=== PATIENT | male | born 1960 | race Caucasian/White ===

== ENCOUNTER 2018-09-12 07:10 | Day surgery (SDC) | payer BC ==
[~2018-09-12] VITALS: Ht 172.7 cm; Wt 88.5 kg
[~2018-09-12 07:10] MED LIST: ASPIR 8181 MG PO; FISH OIL 1,0001 EAC2 NG; GLUCOPHAGE500 MG PO; HYDROCHLOROTH12.5 MG PO; LIPITOR40 MG PO; LISINOPRIL40 MG PO; MULTI VITAMIN1 EACH PO; QC CALCIUM 6001 EACH PO; VITAMIN C100 MG PO; VITAMIN E400 UNI1 PO
--- NOTE | 2018-09-12 08:59 | NUR ---
09/12/18 0859 Beatriz Fabian 0852 PATIENT ARRIVES TO PACU AWAKE, BUT DROWSY, TALKING WITH STAFF. WHEN NOT STIMULATED PATIENT FALLS ASLEEP. RESP EVEN AND UNLABORED, OCCASIONAL SNORING, DESATS WHEN SLEEPING TO 85% ON ROOM AIR, NC AT 2 LITERS, SATS >95%.
--- NOTE | 2018-09-12 16:10 | NUR ---
PT LAYING IN RM, ALERT AND ORIENTED. HE WAS KIND IN HIS CHOICE OF WORDS FOR THE "PREP". HAD GOOD VISIT, EXTENDED A BLESSING. WILL FOLLOW NEEDED
--- NOTE | 2018-09-12 17:10 | OR ---
[facility] [address], [place] [address] Signed DATE OF OPERATION: 09/12/2018 SURGEON: Cristal Jean MD PREOPERATIVE DIAGNOSIS: Hyperplastic rectal polyps in 2009. POSTOPERATIVE DIAGNOSES: 1. 6 mm sessile polyp at 70 cm. 2. Minimal left and sigmoid diverticulosis. 3. Minimal internal hemorrhoids. 4. Indurated prostate gland. PROCEDURE: Colonoscopy with hot biopsy. ESTIMATED BLOOD LOSS: None. INDICATIONS: Tamanna is a 58-year-old gentleman who came in 2009 for his initial screening colonoscopy. He did have some hyperplastic polyps in the rectum. He returns now for followup colonoscopy. He has lower GI complaints. There is no family history of colon cancer or polyps. In the office, I gave him a pamphlet on colonoscopy and we looked at that together along with the risks including, but not limited to gas, bloating, crampy abdominal pain, bleeding, perforation requiring surgery, and missed diagnosis. We also discussed the need for IV conscious sedation. He had expressed his understanding and wished to proceed. PROCEDURE NOTE: Tamanna was placed in the left lateral decubitus position. He was given preoperative antibiotic because of his hip replacement. He was given 10 mg of Versed and 200 mcg of fentanyl to cover the case. A digital rectal exam was performed and he does have a mildly enlarged and moderately indurated prostate gland. The adult colonoscope was introduced and advanced all the way around into the cecum under direct visualization of the camera. It did take some extra sedation in order to advance the scope. His prep was good. The scope was slowly withdrawn. We took pictures throughout for photodocumentation. We could easily see the appendiceal orifice, false pass's foot, and ileocecal valve. We removed the polyp at 70 cm with the help of hot biopsy forceps. We saw some diverticula in the left and sigmoid colon. They were moderate in size, few in Electronically Signed By: CRISTAL JEAN MD 09/12/18 8308 PATIENT NAME: TAMANNA OCHOA OPERATIVE REPORT DATE OF : 64 REPORT #: [id number] PHYSICIAN: CRISTAL JEAN MD PCP: STEFAN CLINE PAC REPORT IS CONFIDENTIAL AND NOT TO BE RELEASED WITHOUT AUTHORIZATION [facility] [address], [place] [address] Signed number, and scattered about. We retroflexed the scope in the rectum. He does have some minimal internal hemorrhoid tissue. After this, the gas was suctioned out and the colonoscope removed. Tamanna tolerated the procedure quite well. RECOMMENDATIONS: I will see Tamanna back in my office in 7 to 14 days to review his results. Cristal Jean MD ALB/MODL /[id number] cc: MD Stefan Ashford Copies: CRISTAL JEAN MD ~ Electronically Signed By: CRISTAL JEAN MD 09/12/18 1710 PATIENT NAME: TAMANNA OCHOA OPERATIVE REPORT DATE OF : 64 REPORT #: [id number] PHYSICIAN: CRISTAL JEAN MD PCP: STEFAN CLINE PAC REPORT IS CONFIDENTIAL AND NOT TO BE RELEASED WITHOUT AUTHORIZATION
== END 2018-09-12 09:40 | disposition home or self-care (01) ==
LOC: OPS 07:10 → DS 07:10 → OPS 08:15
PROVIDERS: Colon & Rectal Surgery
PROC: 0DBE8ZZ Excision of Large Intestine, Via Natural or Artificial Opening Endoscopic (ICD-10-PCS; principal; 2018-09-12 08:15)
DX: Z12.11 Encounter for screening for malignant neoplasm of colon (principal); K63.5 Polyp of colon; K57.30 Diverticulosis of large intestine without perforation or abscess without bleeding; K64.8 Other hemorrhoids; N42.89 Other specified disorders of prostate; I10 Essential (primary) hypertension; E78.5 Hyperlipidemia, unspecified; F17.210 Nicotine dependence, cigarettes, uncomplicated; Z79.82 Long term (current) use of aspirin; Z86.010 Personal history of colon polyps; Z79.899 Other long term (current) drug therapy
CPT/HCPCS: 99153; G0500; J2250; J3010; J3490; J7120

== ENCOUNTER 2020-06-24 06:25 | Day surgery (SDC) | payer BC ==
[~2020-06-24] VITALS: Ht 172.7 cm; Wt 94.0 kg
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
--- NOTE | 2020-06-24 10:54 | NUR ---
06/24/20 1054 Ewa Rausch 1035-PATIENT ARRIVED TO PACU ON 6L MASK NONAROUSABLE RR EVEN ORAL AIRWAY IN PLACE. PACKING TO NOSE CDI. IVF INFUSING SR. 1037PATIENT STARTING TO BECOME REACTIVE MOVING RIGHT ARM ORAL AIRWAY REMOVED. PATIENTS MOUTH SUCTIONED SOUNDS LIKE SECRETIONS, 1040-PATIENT COUGHING SPITTING UP BLOOD MOUTH WIPED AND BLOOD SUCTIONED FROM MOUTH LATRICIA LÓPEZ AND DR. GUEVARA RETURN TO BEDSIDE. NO NEW ORDERS. BLOOD COMPLETELY SUCTIONED FROM MOUTH AND NO MORE DRAINAGE NOTED. PATIENT PLACED ON 4L OXYMASK DUE TO PACKING IN NOSE. 1046-PATIENT TEARFUL REPORTING PAIN 5/10 MEDICATED PER EMAR. REPORTS "I DON'T LIKE TO HURT" 1050-PATIENT REPORTS A "LITTLE DIZZY" ENCOURAGED TO REST
--- NOTE | 2020-06-24 11:35 | NUR ---
PATIENT BACK TO ROOM. BEDSIDE REPORT FROM JORGE LOVE. PATIENT DRIP PAD IN PLACE WITH SMALL AMOUNT OF SHADOWING. VSS. CARINEKER TO SUCTION SET UP, PATIENT COUGHING, THEN HAS SMALL AMOUNT OF BLEEDING. ENCOURAGED NOT TO SWALLOW. CALL LIGHT WITHIN REACH, NOTHER NEEDS AT THIS TIME.
--- NOTE | 2020-06-24 13:00 | NUR ---
PATIENT UP TO BATHROOM, VOIDED WELL. TOLERATED ACTIVITY. CHANGED DRIP PAD. PROIVDED PATIENT EDUCAITON TO SPOUSE AND PATIENT WITH DRESSING CARE. PATIENT NOW RATES PAIN 2/10 ON PAIN SCALE, A BURNING SENSATION. REPORTS TOLERABLE. VSS. READY FOR DISCHARGE.
--- NOTE | 2020-06-24 13:20 | NUR ---
PROVIDED DISCHARGE EDUCATION, PATIENT AND VERBALIZED UNDERSTANDING. PATIENT UP TO WHEELCHAIR. PROVIDED DRESSING CHANGE SUPPLIES TO GET THEM STARTED. CALLED PERSCRIPTION FOR TRAMADOL INTO SAFEWAY THAT DR. GUEVARA VERBALIZED, AFTER PATIENT REPORTED CODEINE UPSET HIS STOMACH.
--- NOTE | 2020-06-25 17:45 | PATH ---
[facility] [address], [place] [address] Signed SPECIMEN(S): A LEFT SINUS CONTENTS SPECIMEN(S): B RIGHTSINUS CONTENTS SPECIMEN SOURCE: A. LEFT SINUS CONTENTS B. RIGHTSINUS CONTENTS CLINICAL HISTORY: Pre: Chronic sinusitis, polyposis, . Post: ESS, septoplasty. FINAL PATHOLOGIC DIAGNOSIS: A, B. Sinus contents, left and right, removal: - Sinonasal inflammatory polyps. - Fragments of benign respiratory epithelium, seromucinous glands, and bone. BRP:cml:C2NR MICROSCOPIC EXAMINATION: Histologic sections of all submitted blocks are examined by light microscopy. These findings, together with the gross examination, support the pathologic diagnosis. GROSS DESCRIPTION: Two specimens are received in two containers, labeled "CW." A. The specimen, labeled "CW, left sinus contents," is received in formalin and consists of irregular shaped, pink-henriquez, soft and bone tissue fragments within the vacuum bag that aggregate measures 4.7 x 4.5 x 0.5 cm. Specimen is left for decalcification in Decal Stat prior to processing. Checker And Packer sections are submitted in cassette (A1). B. The specimen, labeled "CW, right sinus contents," is received in formalin and consists of irregular shaped, pink-henriquez, soft and bone tissue fragments within the vacuum bag that aggregate measure 5.2 x 3.7 x 0.7 cm. Specimen is left for decalcification in Decal Stat prior to processing. Checker And Packer sections are submitted in cassette (B1). JS (under the direct supervision of a pathologist) The Gross Description was prepared using a voice recognition system. The report was reviewed for accuracy; however, sound-alike word errors, addition and/or deletions may occur. If there is any question about this report, please contact Client Services. PERFORMING LABORATORY: PATIENT NAME: TAMANNA OCHOA PATHOLOGY DATE OF : 64 REPORT #: [id number] PHYSICIAN: YANELIS PATHOLOGY PCP: STEFAN CLINE REPORT IS CONFIDENTIAL AND NOT TO BE RELEASED WITHOUT AUTHORIZATION [facility] [address], [place] [address] Signed The technical component was performed by [facility], [address] [place] [address] (Bagging Machine Operator: Lizzie Jenkins MD; CLIA# [id number]). Professional interpretation was performed by [facility], Formerly [facility], [address] [address] (CLIA# [id number]). Diagnostician: Tomi Blanchard MD Pathologist Electronically Signed 06/25/2020 Copies: ~ PATIENT NAME: TAMANNA OCHOA PATHOLOGY DATE OF : 64 REPORT #: [id number] PHYSICIAN: YANELIS TRAORE PCP: ADDLEMAN,STEFAN K PAC REPORT IS CONFIDENTIAL AND NOT TO BE RELEASED WITHOUT AUTHORIZATION
== END 2020-06-24 13:20 | disposition home or self-care (01) ==
LOC: OPS 06:25 → DS 06:25 → OPS 06:45 → DS 06:45 → OPS 13:20
PROVIDERS: ATTEND Otolaryngology
PROC: 09CX4ZZ Extirpation of Matter from Left Sphenoid Sinus, Percutaneous Endoscopic Approach (ICD-10-PCS; 2020-06-24)
PROC: 09CW4ZZ Extirpation of Matter from Right Sphenoid Sinus, Percutaneous Endoscopic Approach (ICD-10-PCS; 2020-06-24)
PROC: 099R4ZZ Drainage of Left Maxillary Sinus, Percutaneous Endoscopic Approach (ICD-10-PCS; 2020-06-24)
PROC: 099Q4ZZ Drainage of Right Maxillary Sinus, Percutaneous Endoscopic Approach (ICD-10-PCS; 2020-06-24)
PROC: 09BV4ZZ Excision of Left Ethmoid Sinus, Percutaneous Endoscopic Approach (ICD-10-PCS; 2020-06-24)
PROC: 09BU4ZZ Excision of Right Ethmoid Sinus, Percutaneous Endoscopic Approach (ICD-10-PCS; 2020-06-24)
PROC: 09BM4ZZ Excision of Nasal Septum, Percutaneous Endoscopic Approach (ICD-10-PCS; principal; 2020-06-24 06:45)
DX: J32.1 Chronic frontal sinusitis (principal); J32.2 Chronic ethmoidal sinusitis; J32.3 Chronic sphenoidal sinusitis; J34.2 Deviated nasal septum; J34.89 Other specified disorders of nose and nasal sinuses; J33.8 Other polyp of sinus; E11.9 Type 2 diabetes mellitus without complications; I10 Essential (primary) hypertension; Z87.891 Personal history of nicotine dependence
CPT/HCPCS: 00160; J0330; J1100; J1885; J2250; J2405; J2704; J2765; J3010; J7121